=== PATIENT | female | born 1980 | race Caucasian/White ===

== ENCOUNTER 2016-08-30 09:30 | Day surgery (SDC) | payer OTHER ==
[~2016-08-30] VITALS: Ht 167.6 cm; Wt 124.7 kg
[~2016-08-30 09:30] MED LIST: MULTI VITAMIN1 EACH PO; PRISTIQ50 MG PO; ZANTAC150 MG PO
[2016-08-30 09:40] VITALS: BP 120/72
[2016-08-30] MEDS ORDERED: IBUPROFEN800 MG PO (11:38)
[2016-08-30] MEDS ORDERED: HYDROCODON-ACE1 EAC7 PO (11:38)
[2016-08-30 12:45] VITALS: BP 160/88
== END 2016-08-30 13:50 | disposition home or self-care (01) ==
LOC: SDC 09:30
PROC: 0UB74ZZ Excision of Bilateral Fallopian Tubes, Percutaneous Endoscopic Approach (ICD-10-PCS; principal; 2016-08-30)
DX: Z30.2 Encounter for sterilization (principal)
CPT/HCPCS: 88302; J0131; J1100; J1170; J1885; J2250; J2405; J2710; J3010